=== PATIENT | male | born 1970 | race Caucasian/White ===

== ENCOUNTER 2024-05-26 13:35 | Outpatient (CLI) | payer OTHER | END 2024-05-26 13:36 | disposition home or self-care (01) | LOC: BICMRI 13:35 | PROVIDERS: ATTEND Family Medicine | DX: M54.12 Radiculopathy, cervical region (principal); M54.16 Radiculopathy, lumbar region; M48.061 Spinal stenosis, lumbar region without neurogenic claudication; M48.02 Spinal stenosis, cervical region; M25.80 Other specified joint disorders, unspecified joint; M40.50 Lordosis, unspecified, site unspecified | CPT/HCPCS: 72141; 72148 ==